=== PATIENT | male | born 1980 | race Caucasian/White ===

== ENCOUNTER 2022-12-11 17:45 | Inpatient (IN) | payer OTHER ==
[2022-12-11 18:07] VITALS: BMI 25.0
[2022-12-11] MEDS ORDERED: POLYETHYLENE GLYCOL (HEALTHYLAX) 3350 17 GM PACKET PO PRN (21:49)
[2022-12-11] MEDS ORDERED: IBUPROFEN 400 MG TABLET (FP) PO PRN (21:49)
[2022-12-11] MEDS ORDERED: ACETAMINOPHEN 325 MG TABLET (FP) PO PRN ×2 (21:49)
[2022-12-11] MEDS ORDERED: ONDANSETRON *ODT* 4 MG TABLET SL PRN (21:49)
[2022-12-11] MEDS ORDERED: IBUPROFEN 600 MG TABLET (FP) PO PRN (21:49)
[2022-12-11] MEDS ORDERED: MAGNESIUM HYDROX 2400MG/30ML ORAL SUSPENSION 30 ML CUP PO PRN (21:49)
[2022-12-11] MEDS ORDERED: MAG HYDROX/AL HYDROX/SIMETH 30 ML UNIT-DOSE CUP PO PRN (21:49)
[2022-12-11] MEDS ORDERED: cloNIDine HCL 0.1 MG TABLET PO PRN (21:49)
[2022-12-11] MEDS ORDERED: BISMUTH SUBSALICYLATE 524 MG/30 ML PO PRN (21:49)
[2022-12-11] MEDS ORDERED: DICYCLOMINE HCL 10 MG CAPSULE PO PRN (21:49)
[2022-12-11] MEDS ORDERED: LOPERAMIDE HCL 2 MG CAPSULE PO PRN (21:49)
[2022-12-11] MEDS ORDERED: NALOXONE HCL (KLOXXADO) 8 MG SPRAY NS PRN (21:49)
[2022-12-11] MEDS ORDERED: methaDONE HCL 10 MG TABLET (FOR DETOX USE ONLY) PO ONE (21:49)
[2022-12-11] MEDS ORDERED: BENZOCAINE/MENTHOL (CHLORASEPTIC ) LOZENGE MM PRN (21:49)
[2022-12-11] MEDS ORDERED: methaDONE HCL 10 MG TABLET (FOR DETOX USE ONLY) ONE (23:27)
[2022-12-11] MEDS ORDERED: MELATONIN 5 MG TABLETS ONE (23:27)
[2022-12-11] MEDS: MELATONIN 5 MG TABLETS PO SCH (23:42)
[2022-12-12] MEDS: THIAMINE HCL 100 MG TABLET (FP) PO SCH ×2 (00:53→22:18)
[2022-12-12] MEDS: NICOTINE 10 MG CARTRIDGE (INHALER) IH PRN ×4 (01:02→23:14)
[2022-12-12] MEDS: PRENATAL VITAMINS W/ FOLIC ACID TABLET (FP) PO SCH (10:44)
[2022-12-12] MEDS: NICOTINE 21 MG/24 HOURS TOPICAL PATCH TD SCH (10:44)
[2022-12-12] MEDS ORDERED: MELATONIN 5 MG TABLETS PO STA (21:35)
[2022-12-12] MEDS: METHOCARBAMOL 500 MG TABLET PO PRN (22:17)
[2022-12-12] MEDS: hydrOXYzine PAMOATE 25 MG CAPSULE (FP) PO PRN (22:18)
[2022-12-12] MEDS: MELATONIN 5 MG TABLETS PO SCH (22:18)
[2022-12-13] MEDS: NICOTINE 10 MG CARTRIDGE (INHALER) IH PRN ×3 (06:56→20:18)
[2022-12-13] MEDS ORDERED: methaDONE HCL 10 MG TABLET (FOR DETOX USE ONLY) PO ONE (10:00)
[2022-12-13] MEDS: PRENATAL VITAMINS W/ FOLIC ACID TABLET (FP) PO SCH (10:05)
[2022-12-13] MEDS: NICOTINE 21 MG/24 HOURS TOPICAL PATCH TD SCH (10:06)
[2022-12-13 13:34] LABS: HEMATOCRIT 36.3 % (35.4-49); HEMOGLOBIN 12.4 GM/dL (11.7-16.9); MCH 31.2 pg (25.7-33.7); MCHC 34.2 g/dl (32.0-35.9); MEAN CELL VOLUME 91.1 fl (80-96); MEAN PLT VOLUME 8.5 fl (7.5-11.1); PLATELET COUNT 219 10^3/uL (134-434); RBC 3.98 M/mm3 (4.00-5.60); RDW 13.4 % (11.9-15.9); WHITE BLOOD COUNT 4.1 K/mm3 (4.0-10.0)
[2022-12-13 13:46] LABS: BLOOD UREA NITROGEN 6.3 mg/dL (7-18); CALCIUM 9.2 mg/dL (8.5-10.1)
[2022-12-13 13:47] LABS: ALBUMIN 3.3 g/dl (3.4-5.0)
[2022-12-13 13:49] LABS: CREATININE 0.6 mg/dL (0.55-1.3)
[2022-12-13 13:51] LABS: BILIRUBIN,TOTAL 0.5 mg/dL (0.2-1)
[2022-12-13] MEDS: MELATONIN 5 MG TABLETS PO SCH (22:10)
[2022-12-13] MEDS: METHOCARBAMOL 500 MG TABLET PO PRN (22:11)
[2022-12-13] MEDS: THIAMINE HCL 100 MG TABLET (FP) PO SCH (22:11)
[2022-12-13] MEDS: hydrOXYzine PAMOATE 25 MG CAPSULE (FP) PO PRN (22:11)
[2022-12-13] MEDS: QUEtiapine FUMARATE 25 MG TABLET PO SCH (22:11)
[2022-12-14] MEDS: NICOTINE 10 MG CARTRIDGE (INHALER) IH PRN ×2 (09:41→18:22)
[2022-12-14] MEDS: PRENATAL VITAMINS W/ FOLIC ACID TABLET (FP) PO SCH (10:14)
[2022-12-14] MEDS: NICOTINE 21 MG/24 HOURS TOPICAL PATCH TD SCH (10:16)
[2022-12-14] MEDS: MELATONIN 5 MG TABLETS PO SCH (22:19)
[2022-12-14] MEDS: QUEtiapine FUMARATE 25 MG TABLET PO SCH (22:19)
[2022-12-14] MEDS: THIAMINE HCL 100 MG TABLET (FP) PO SCH (22:19)
[2022-12-14] MEDS: hydrOXYzine PAMOATE 25 MG CAPSULE (FP) PO PRN (22:21)
[2022-12-14] MEDS: METHOCARBAMOL 500 MG TABLET PO PRN (22:21)
[2022-12-15] MEDS ORDERED: methaDONE HCL 10 MG TABLET (FOR DETOX USE ONLY) PO ONE (10:00)
[2022-12-15] MEDS: PRENATAL VITAMINS W/ FOLIC ACID TABLET (FP) PO SCH (10:31)
[2022-12-15] MEDS: NICOTINE 21 MG/24 HOURS TOPICAL PATCH TD SCH (10:31)
[2022-12-15] MEDS: NICOTINE 10 MG CARTRIDGE (INHALER) IH PRN ×2 (10:32→22:36)
[2022-12-15] MEDS: THIAMINE HCL 100 MG TABLET (FP) PO SCH (22:32)
[2022-12-15] MEDS: MELATONIN 5 MG TABLETS PO SCH (22:32)
[2022-12-15] MEDS: QUEtiapine FUMARATE 25 MG TABLET PO SCH (22:32)
[2022-12-15] MEDS: hydrOXYzine PAMOATE 25 MG CAPSULE (FP) PO PRN (22:35)
[2022-12-15] MEDS: METHOCARBAMOL 500 MG TABLET PO PRN (22:35)
[2022-12-16 10:03] VITALS: BP 105/61; PULSE 68; RESP 17; TEMP 97.5
[2022-12-16] MEDS: PRENATAL VITAMINS W/ FOLIC ACID TABLET (FP) PO SCH (10:08)
[2022-12-16] MEDS: NICOTINE 21 MG/24 HOURS TOPICAL PATCH TD SCH (10:08)
== END 2022-12-16 11:44 | disposition other institution (70) | DRG 773 ==
LOC: YASAS 17:45 → Y3N 23:24
PROVIDERS: ADMIT Allergy & Immunology; ATTEND Surgery
PROC: HZ2ZZZZ Detoxification Services for Substance Abuse Treatment (ICD-10-PCS; principal; 2022-12-11)
DX: F11.23 Opioid dependence with withdrawal (principal); F14.20 Cocaine dependence, uncomplicated; F17.210 Nicotine dependence, cigarettes, uncomplicated; F19.282 Other psychoactive substance dependence with psychoactive substance-induced sleep disorder; F51.01 Primary insomnia; R94.31 Abnormal electrocardiogram [ECG] [EKG]
CPT/HCPCS: 36415; 80053; 85027; 86780; 93005; 93010; C9803-CS; U0003; U0005

== ENCOUNTER 2022-12-16 12:03 | Inpatient (IN) | payer OTHER ==
[2022-12-16] MEDS ORDERED: POLYETHYLENE GLYCOL (HEALTHYLAX) 3350 17 GM PACKET PO PRN (12:38)
[2022-12-16] MEDS ORDERED: BENZOCAINE/MENTHOL (CHLORASEPTIC ) LOZENGE MM PRN (12:38)
[2022-12-16] MEDS ORDERED: ACETAMINOPHEN 325 MG TABLET (FP) PO PRN (12:38)
[2022-12-16] MEDS ORDERED: LOPERAMIDE HCL 2 MG CAPSULE PO PRN (12:38)
[2022-12-16] MEDS ORDERED: guaiFENesin 200 MG/10 ML 10 ML UNIT-DOSE CUPS PO PRN (12:38)
[2022-12-16] MEDS ORDERED: MAGNESIUM HYDROX 2400MG/30ML ORAL SUSPENSION 30 ML CUP PO PRN (12:38)
[2022-12-16] MEDS ORDERED: NICOTINE POLACRILEX 2 MG GUM BUC PRN (12:38)
[2022-12-16] MEDS ORDERED: MAG HYDROX/AL HYDROX/SIMETH 30 ML UNIT-DOSE CUP PO PRN (12:38)
[2022-12-16] MEDS ORDERED: P-EPHED 60MG/TRIPROLIDI 2.5MG TABLET PO PRN (12:38)
[2022-12-16] MEDS: PRENATAL VITAMINS W/ FOLIC ACID TABLET (FP) PO SCH (14:07)
[2022-12-16] MEDS: QUEtiapine FUMARATE 25 MG TABLET PO SCH (21:43)
[2022-12-16] MEDS: MELATONIN 5 MG TABLETS PO SCH (21:43)
[2022-12-16] MEDS: THIAMINE HCL 100 MG TABLET (FP) PO SCH (21:43)
[2022-12-16] MEDS: NICOTINE 10 MG CARTRIDGE (INHALER) IH PRN (21:44)
[2022-12-16] MEDS: hydrOXYzine PAMOATE 25 MG CAPSULE (FP) PO PRN (21:44)
[2022-12-17] MEDS: PRENATAL VITAMINS W/ FOLIC ACID TABLET (FP) PO SCH (10:32)
[2022-12-17] MEDS: NICOTINE 10 MG CARTRIDGE (INHALER) IH PRN (15:28)
[2022-12-17] MEDS: IBUPROFEN 400 MG TABLET (FP) PO PRN (15:28)
[2022-12-17] MEDS: THIAMINE HCL 100 MG TABLET (FP) PO SCH (21:28)
[2022-12-17] MEDS: QUEtiapine FUMARATE 25 MG TABLET PO SCH (21:28)
[2022-12-17] MEDS: MELATONIN 5 MG TABLETS PO SCH (21:28)
[2022-12-17] MEDS: hydrOXYzine PAMOATE 25 MG CAPSULE (FP) PO PRN (21:28)
[2022-12-18] MEDS: PRENATAL VITAMINS W/ FOLIC ACID TABLET (FP) PO SCH (09:44)
[2022-12-18] MEDS: NICOTINE 10 MG CARTRIDGE (INHALER) IH PRN (09:44)
[2022-12-18] MEDS: IBUPROFEN 400 MG TABLET (FP) PO PRN (17:09)
[2022-12-18] MEDS: THIAMINE HCL 100 MG TABLET (FP) PO SCH (21:51)
[2022-12-18] MEDS: hydrOXYzine PAMOATE 25 MG CAPSULE (FP) PO PRN (21:51)
[2022-12-18] MEDS: QUEtiapine FUMARATE 25 MG TABLET PO SCH (21:51)
[2022-12-18] MEDS: MELATONIN 5 MG TABLETS PO SCH (21:51)
[2022-12-19] MEDS: NICOTINE 10 MG CARTRIDGE (INHALER) IH PRN (07:09)
[2022-12-19] MEDS: PRENATAL VITAMINS W/ FOLIC ACID TABLET (FP) PO SCH (10:54)
[2022-12-19] MEDS: hydrOXYzine PAMOATE 25 MG CAPSULE (FP) PO PRN (21:00)
[2022-12-19] MEDS: THIAMINE HCL 100 MG TABLET (FP) PO SCH (21:00)
[2022-12-19] MEDS: MELATONIN 5 MG TABLETS PO SCH (21:00)
[2022-12-19] MEDS: QUEtiapine FUMARATE 25 MG TABLET PO SCH (21:00)
[2022-12-19] MEDS: BACLOFEN 10 MG TABLET (FP) PO PRN (21:00)
[2022-12-20] MEDS: PRENATAL VITAMINS W/ FOLIC ACID TABLET (FP) PO SCH (10:13)
[2022-12-20] MEDS: NICOTINE 10 MG CARTRIDGE (INHALER) IH PRN (13:52)
[2022-12-20] MEDS: BACLOFEN 10 MG TABLET (FP) PO PRN (21:49)
[2022-12-20] MEDS: THIAMINE HCL 100 MG TABLET (FP) PO SCH (21:49)
[2022-12-20] MEDS: QUEtiapine FUMARATE 25 MG TABLET PO SCH (21:49)
[2022-12-20] MEDS: hydrOXYzine PAMOATE 25 MG CAPSULE (FP) PO PRN (21:49)
[2022-12-20] MEDS: MELATONIN 5 MG TABLETS PO SCH (21:50)
[2022-12-21 07:01] VITALS: RESP 18
[2022-12-21] MEDS: PRENATAL VITAMINS W/ FOLIC ACID TABLET (FP) PO SCH (10:55)
[2022-12-21] MEDS: NICOTINE 10 MG CARTRIDGE (INHALER) IH PRN (17:34)
[2022-12-21] MEDS: MELATONIN 5 MG TABLETS PO SCH (21:19)
[2022-12-21] MEDS: hydrOXYzine PAMOATE 25 MG CAPSULE (FP) PO PRN (21:19)
[2022-12-21] MEDS: THIAMINE HCL 100 MG TABLET (FP) PO SCH (21:19)
[2022-12-21] MEDS: QUEtiapine FUMARATE 25 MG TABLET PO SCH (21:19)
[2022-12-22] MEDS: PRENATAL VITAMINS W/ FOLIC ACID TABLET (FP) PO SCH (09:32)
[2022-12-22] MEDS: NICOTINE 10 MG CARTRIDGE (INHALER) IH PRN ×2 (09:33→21:06)
[2022-12-22] MEDS: QUEtiapine FUMARATE 25 MG TABLET PO SCH (21:05)
[2022-12-22] MEDS: MELATONIN 5 MG TABLETS PO SCH (21:05)
[2022-12-22] MEDS: hydrOXYzine PAMOATE 25 MG CAPSULE (FP) PO PRN (21:05)
[2022-12-22] MEDS: THIAMINE HCL 100 MG TABLET (FP) PO SCH (21:05)
[2022-12-22] MEDS: BACLOFEN 10 MG TABLET (FP) PO PRN (21:06)
[2022-12-23] MEDS: NICOTINE 10 MG CARTRIDGE (INHALER) IH PRN (06:32)
[2022-12-23 06:55] VITALS: BP 109/62; PULSE 73; TEMP 98.4
[2022-12-23] MEDS: PRENATAL VITAMINS W/ FOLIC ACID TABLET (FP) PO SCH (09:49)
== END 2022-12-23 09:35 | disposition home or self-care (01) | DRG 772 ==
LOC: YASAS 12:03 → Y3W 12:04 → Y5N 12-20 09:38 → Y3W 12-20 09:39
PROVIDERS: ADMIT Allergy & Immunology; ATTEND Allergy & Immunology
PROC: HZ42ZZZ Group Counseling for Substance Abuse Treatment, Cognitive-Behavioral (ICD-10-PCS; principal; 2022-12-16)
DX: F11.20 Opioid dependence, uncomplicated (principal); F14.20 Cocaine dependence, uncomplicated; F17.210 Nicotine dependence, cigarettes, uncomplicated; F19.282 Other psychoactive substance dependence with psychoactive substance-induced sleep disorder; F51.01 Primary insomnia; M54.50 Low back pain, unspecified; Z56.0 Unemployment, unspecified
CPT/HCPCS: J0475